=== PATIENT | female | born 1975 | race African-American/Black ===

== ENCOUNTER 2018-05-02 16:00 | Emergency (ER) | payer MEDICAID ==
[2018-05-02] MEDS ORDERED: ONDANSETRON ODT 4 MG TABLET TL STA (17:23)
[2018-05-02 17:24] LABS: BILIRUBIN,URINE NEGATIVE (NEGATIVE); GLUCOSE, URINE (UA) 100 mg/dL (NEGATIVE); KETONES,URINE (UA) NEGATIVE (NEGATIVE); LEUKOCYTE ESTERASE, URINE NEGATIVE (NEGATIVE); NITRITE,URINE NEGATIVE (NEGATIVE); OCCULT BLOOD,URINE TRACE-LYSE (NEGATIVE); PROTEIN,URINE NEGATIVE (NEGATIVE); UROBILINOGEN,URINE 0.2 (NORMAL) E.U./dL (NORMAL)
--- NOTE | 2018-05-02 17:26 | ED Physician Documentation ---
PD HPI ABD PAIN - Stated complaint Stated Complaint: NAUSEA/VOMITING - Chief complaint Chief Complaint: Abd Pain - History obtained from History obtained from: Patient - History of Present Illness Timing - onset: Other (She has had diverticulosis diagnosed by colonoscopy which she had for stomach issues. She never really had diverticulitis per se. About a week ago she developed periumbilical and left lower quadrant pain radiating a little bit to the back associated with diarrhea. No fevers. She has had nausea but no vomiting. She has not had recent travel, camping, or antibiotic use or sick contacts.) Review of Systems Ten Systems: 10 systems reviewed and negative Constitutional: denies: Fever, Chills Cardiac: denies: Chest pain / pressure, Palpitations Respiratory: denies: Dyspnea, Cough GI: reports: Abdominal Pain, Nausea, Diarrhea. denies: Bloody / black stool PD PAST MEDICAL HISTORY - Present Medications Home Medications: Ambulatory Orders Medication Instructions Recorded Confirmed Dicyclomine HCl 20 mg PO QID PRN #20 tablet 05/02/18 Gabapentin 300 mg 05/02/18 Glipizide 5 mg 05/02/18 Lisinopril 10 mg 05/02/18 Loperamide [Imodium] 2 mg PO QID PRN #10 capsule 05/02/18 Ondansetron HCl [Zofran] 4 mg PO Q6H PRN #10 tablet 05/02/18 - Allergies Allergies/Adverse Reactions: Allergies Allergy/AdvReac Type Severity Reaction Status Date / Time No Known Drug Allergies Allergy Verified 05/02/18 16:12 PD ED PE NORMAL - Vitals Vital signs reviewed: Yes - General General: Alert and oriented X 3, No acute distress - Neck Neck: Supple, no meningeal sign, No bony TTP - Cardiac Cardiac: RRR, No murmur - Respiratory Respiratory: No respiratory distress, Clear bilaterally - Abdomen Abdomen: Normal bowel sounds, Soft, Non tender - Derm Derm: Normal color, Warm and dry, No rash - Extremities Extremities: No edema, No calf tenderness / cord - Neuro Neuro: Alert and oriented X 3, Normal speech Results - Vitals Vitals: Vital Signs - 24 hr 05/02/18 16:05 Temperature 36.6 C Heart Rate 94 Respiratory 18 Rate Blood Pressure 148/116 H O2 Saturation 98 Oxygen O2 Source Room air - Labs Labs: Laboratory Tests 05/02/18 05/02/18 05/02/18 17:00 17:29 17:29 WBC 7.6 RBC 4.73 Hgb 13.1 Hct 41.2 MCV 87.2 MCH 27.8 MCHC 31.9 L RDW 12.7 Plt Count 183 MPV 9.2 Neut # (Auto) 4.8 Lymph # (Auto) 2.1 [place] # (Auto) 0.5 Eos # (Auto) 0.1 Baso # (Auto) 0.1 Absolute Nucleated RBC 0.00 Nucleated RBC % 0.0 Sodium 135 Potassium 3.4 L Chloride 104 Carbon Dioxide 23 Anion Gap 8.0 BUN 5 L Creatinine 0.7 Estimated GFR (MDRD) 111 Glucose 193 H Calcium 8.8 Total Bilirubin 0.7 AST 36 ALT 59 Alkaline Phosphatase 93 Total Protein 7.8 Albumin 4.0 Globulin 3.8 Albumin/Globulin Ratio 1.1 Lipase 26 Urine Color YELLOW Urine Clarity CLOUDY Urine pH 6.0 Ur Specific [place] >=1.030 H Urine Protein NEGATIVE Urine Glucose (UA) 100 H Urine Ketones NEGATIVE Urine Occult Blood TRACE-LYSE Urine Nitrite NEGATIVE Urine Bilirubin NEGATIVE Urine Urobilinogen 0.2 (NORMAL) Ur Leukocyte Esterase NEGATIVE Urine RBC None Seen Urine WBC 0-3 Ur Squamous Epith Cells RARE Squamous Amorphous Sediment Marked Urine Bacteria None Seen Ur Microscopic Review INDICATED Urine Culture Comments NOT INDICATED Urine HCG, Qual NEGATIVE - Rads (name of study) CT KUB Radiology: EMP read contemporaneously (Colonic diverticulosis without other acute abnormality, some artifact in the pelvis from her hips.) PD MEDICAL DECISION MAKING - ED course ED course: 43-year-old woman with lower abdominal pain for several days associated with diarrhea. Nothing initially to suggest an infectious etiology, no fevers or white count. Her CT was negative except for diverticulosis which we already knew about. Delving into her history I wonder if she has something like IBS. She had a colonoscope about a year ago for ongoing symptoms which was reportedly negative. I assume therefore she does not have Crohn's and they did biopsies for celiac. She is under a lot of stress of this could be consistent with IBS. - Sepsis Event Vital Signs: Vital Signs - 24 hr 05/02/18 16:05 Temperature 36.6 C Heart Rate 94 Respiratory 18 Rate Blood Pressure 148/116 H O2 Saturation 98 Oxygen O2 Source Room air Departure - Departure Disposition: 01 Home, Self Care Clinical Impression: Abdominal pain Qualifiers: Abdominal location: lower abdomen, unspecified Qualified Code(s): R10.30 - Lower abdominal pain, unspecified Condition: Good Record reviewed to determine appropriate education?: Yes Instructions: Abdominal Pain Prescriptions: Dicyclomine HCl 20 mg PO QID PRN #20 tablet PRN Reason: Abdominal Cramps Loperamide [Imodium] 2 mg PO QID PRN #10 capsule PRN Reason: Diarrhea Ondansetron HCl [Zofran] 4 mg PO Q6H PRN #10 tablet PRN Reason: Nausea / Vomiting Comments: FOLLOWUP WITH YOUR DOCTOR ON RETURN HOME TO [facility], RECHECK BP WAS HIGH HERE AND BLOOD SUGAR WAS 190. RETURN FOR NEW OR WORSENING SYMPTOMS.
[2018-05-02 17:33] LABS: CLARITY,URINE CLOUDY (CLEAR)
[2018-05-02 17:34] LABS: AMORPHOUS SEDIMENT,UR Marked /LPF; BACTERIA,URINE None Seen /HPF (None Seen); HCG UR QUAL NEGATIVE; RBC,URINE None Seen /HPF (0-5); SQUAMOUS EPITHELIAL CELL,UR RARE Squamous (<= Few)
[2018-05-02 17:39] LABS: BASOPHILS # (AUTO) 0.1 10^3/uL (0.0-0.1); EOSINOPHILS # (AUTO) 0.1 10^3/uL (0.0-0.7); EOSINOPHILS % (AUTO) 1.5 %; HGB - HEMOGLOBIN 13.1 g/dL (12.0-16.0); LYMPHOCYTES # (AUTO) 2.1 10^3/uL (1.5-3.5); LYMPHOCYTES % (AUTO) 27.7 %; MEAN CORPUSCULAR HEMOGLOBIN 27.8 pg (27.0-31.0); MEAN CORPUSCULAR HGB CONC 31.9 g/dL (32.0-36.0); MEAN CORPUSCULAR VOLUME 87.2 fL (81.0-99.0); MEAN PLATELET VOLUME 9.2 fL (7.9-10.8); MONOCYTES # (AUTO) 0.5 10^3/uL (0.0-1.0); MONOCYTES % (AUTO) 6.8 %; NEUTROPHILS # (AUTO) 4.8 10^3/uL (1.5-6.6); PLT - PLATELET COUNT 183 10^3/uL (130-450); RED BLOOD COUNT 4.73 10^6/uL (4.20-5.40); RED CELL DISTRIBUTION WIDTH 12.7 % (12.0-15.0); WHITE BLOOD COUNT 7.6 x10^3/uL (4.8-10.8)
[2018-05-02 17:46] LABS: ALBUMIN/GLOBULIN RATIO 1.1 (1.0-2.2); BILIRUBIN,TOTAL 0.7 mg/dL (0.2-1.0); CALCIUM 8.8 mg/dL (8.5-10.3); CREATININE 0.7 mg/dL (0.4-1.0); TOTAL PROTEIN 7.8 g/dL (6.7-8.2)
--- NOTE | 2018-05-02 18:45 | CT Report ---
Procedure Date: 05/02/2018 Accession Number: [id number] / [id number] Procedure: CT - Abdomen/Pelvis W/O CPT Code: FULL RESULT: EXAM: CT ABDOMEN AND PELVIS EXAM DATE: 05/02/2018 06:07 PM. CLINICAL HISTORY: Left lower quadrant pain and nausea for one week. COMPARISONS: None. TECHNIQUE: Routine helical CT imaging was performed through the abdomen and pelvis. IV contrast: None. Enteric contrast: No. Reconstructions: Coronal and sagittal. In accordance with CT protocol optimization, one or more of the following dose reduction techniques were utilized for this exam: automated exposure control, adjustment of mA and/or KV based on patient size, or use of iterative reconstructive technique. FINDINGS: Lung Bases: Unremarkable. Liver: Normal. No masses. Gallbladder/Bile Ducts: Unremarkable. Spleen: Normal. Pancreas: Normal. Adrenal Glands: Normal right adrenal gland. Hyperplasia left adrenal gland. Kidneys: Normal. No stones, masses or hydronephrosis. Normal ureters although the distal aspects obscured by the hip prosthesis artifacts. Peritoneal Cavity/Bowel: Diverticula off the colon. Large phlebolith right gonadal vein. No free fluid, free air or adenopathy. No masses or acute inflammatory process. The appendix is well visualized and normal. 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 The bladder and visualized pelvic organs are within normal limits. Vasculature: No aneurysms or other significant abnormality. Bones: Bilateral total hip replacement. No significant abnormality. Other: None. IMPRESSION: 1. Colonic diverticulosis. 2. Distal ureters and base of the bladder obscured by total hip surgical hardware. 3. No radiographic explanation for this lady's presenting symptoms. [facility]
[2018-05-02] MEDS ORDERED: DICYCLOMINE 10 MG CAPSULE PO STA (19:00)
[2018-05-02] MEDS ORDERED: LOPERAMIDE 2 MG CAPSULE PO STA (19:00)
[2018-05-02 19:20] VITALS: BP 157/114
== END 2018-05-02 19:20 | disposition home or self-care (01) ==
LOC: ED 16:00
DX: R10.30 Lower abdominal pain, unspecified (principal); K57.30 Diverticulosis of large intestine without perforation or abscess without bleeding
CPT/HCPCS: 36415; 74176; 80053; 81001; 81025; 83690; 85025; 87045; 87046; 87493; 99283; 99284; A9270; Q0162; 81003; 87086